=== PATIENT | female | born 2000 | race African-American/Black ===

== ENCOUNTER 2019-10-11 17:54 | Emergency (ER) | payer OTHER ==
--- NOTE | 2019-10-11 18:51 | ER Document Report ---
ED General - General Chief Complaint: Abdominal Cramping Stated Complaint: NAUSEA,VOMITING Time Seen by Provider: 10/11/19 18:20 Notes: 19-year-old female presents emergency department complaining that she started having nausea and vomiting associated with epigastric abdominal pain earlier this morning. Patient can tolerate liquids but not solids. Patient is concerned she may be because her last menstrual period which started on 09/19/2019 was only 5 days long instead of 7 days long. Denies any fevers or chills, denies any contact with coronavirus patients, denies any diarrhea or any other associated signs or symptoms. - Related Data Allergies/Adverse Reactions: No Known Allergies Allergy (Unverified 10/11/19 18:32) Past Medical History - General Information source: Patient - Social History Smoking Status: Never Smoker Family History: Reviewed & Not Pertinent Patient has homicidal ideation: No Review of Systems - Review of Systems Constitutional: No symptoms reported Gastrointestinal: See HPI, Abdominal pain, Nausea, Vomiting -: Yes All other systems reviewed and negative Physical Exam - Vital signs Vitals: Temp Pulse Resp BP Pulse Ox 98.2 F 76 16 136/66 H 100 10/11/19 18:25 10/11/19 18:25 10/11/19 18:25 10/11/19 18:25 10/11/19 18:25 Interpretation: Normal - Notes Notes: GENERAL: Alert, interacts well. No acute distress. HEAD: Normocephalic, atraumatic EYES: Pupils equal, round and reactive to light, extraocular movements intact. ENT: Oral mucosa moist, tongue midline. NECK: Full range of motion, supple, trachea midline. LUNGS: Clear to auscultation bilaterally, no wheezes, rales or rhonchi, no respiratory distress. HEART: Regular rate and rhythm, no murmurs, gallops, rubs. ABDOMEN: Soft, mild epigastric tenderness to palpation without any guarding, rigidity or rebounding, nondistended, bowel sounds present in all 4 quadrants. EXTREMITIES: Moves all 4 extremities spontaneously, no edema, radial and dorsalis pedis pulses 2/4 bilaterally. No cyanosis. NEUROLOGICAL: Alert and oriented x3, normal speech. PSYCH: Normal mood, normal affect. SKIN: Warm, Dry, normal turgor, no rashes or lesions noted. Course - Re-evaluation Re-evalutation: 10/11/19 20:27 CBC unremarkable, CMP unremarkable, urinalysis unremarkable, test negative. Lipase normal. Patient will be given GI cocktail, recommended to take daily acid suppressing medication, follow bland diet and advance as tolerated. Discharged home. Patient refused novel coronavirus testing. - Vital Signs Vital signs: Temp Pulse Resp BP Pulse Ox 98.2 F 76 16 136/66 H 100 10/11/19 18:26 10/11/19 18:25 10/11/19 18:25 10/11/19 18:25 10/11/19 18:25 - Laboratory Result Diagrams: 10/11/19 19:00 10/11/19 19:00 Laboratory results interpreted by me: 10/11/19 19:00 Sodium 136.5 L Discharge - Discharge Clinical Impression: Menstrual irregularity, Epigastric abdominal pain Nausea and vomiting Qualifiers: Vomiting type: unspecified Vomiting Intractability: non-intractable Qualified Code(s): R11.2 - Nausea with vomiting, unspecified Condition: Stable Disposition: HOME, SELF-CARE Additional Instructions: Today your blood work was normal. You do not have a urinary tract infection. You are not . There is no sign of infection in your abdomen. We gave you medication to help numb some of the pain in your upper abdomen. I think taking a daily acid suppressing medication such as Pepcid 20 mg twice a day may help with some of your pain. This medication is available [id number] both as a brand-name and as a generic. Please follow a bland diet, avoid spicy foods, greasy foods and alcohol. Start with clear liquids and then slowly introduce more liquids and foods in as you tolerate it. If something makes you vomit stop eating it wait 24 hours and then try again. Please return to the emergency department for any new or concerning symptoms to include persistent vomiting, fevers or blood in your vomit. Prescriptions: Famotidine [Pepcid 20 mg Tablet] 20 mg PO DAILY #30 tablet Forms: Return to Work
[2019-10-11 18:57] LABS: APPEARANCE,URINE SLIGHTLY-CLOUDY; BILIRUBIN,URINE NEGATIVE (NEGATIVE); COLOR,URINE YELLOW; GLUCOSE, URINE NEGATIVE (NEGATIVE); KETONES,URINE NEGATIVE (NEGATIVE); LEUKOCYTE ESTERASE,URINE NEGATIVE (NEGATIVE); NITRITE,URINE NEGATIVE (NEGATIVE); PROTEIN,URINE NEGATIVE (NEGATIVE); URINE SPECIFIC GRAVITY 1.013; UROBILINOGEN,URINE NEGATIVE mg/dL (<2.0)
[2019-10-11 19:20] LABS: ABSOLUTE EOSINOPHILS # (AUTO) 0.2 10^3/uL (0.0-0.6); ABSOLUTE MONOCYTES (AUTO) 0.6 10^3/uL (0.1-1.4); ABSOLUTE NEUT (AUTO) 3.2 10^3/uL (1.7-8.2); BASOPHILS % (AUTO) 0.7 % (0-2); HEMATOCRIT 37.6 % (36.0-47.0); HEMOGLOBIN 12.7 g/dL (12.0-15.5); LYMPHOCYTES % (AUTO) 33.4 % (13-45); MEAN CORPUSCULAR HEMOGLOBIN 30.2 pg (27.0-33.4); MEAN CORPUSCULAR HGB CONC 33.7 g/dL (32.0-36.0); MEAN CORPUSCULAR VOLUME 90 fl (80-97); MONOCYTES % (AUTO) 9.9 % (3-13); PLATELET COUNT 317 10^3/uL (150-450); RED CELL DISTRIBUTION WIDTH 12.5 % (11.5-14.0); TOTAL CELLS COUNTED % (AUTO) 100 %
[2019-10-11 19:41] LABS: ALBUMIN 3.9 g/dL (3.5-5.0); ALKALINE PHOSPHATASE 40 U/L (38-126); ANION GAP 7 (5-19); ASPARTATE AMINO TRANSFERASE 19 U/L (14-36); BILIRUBIN,TOTAL 0.2 mg/dL (0.2-1.3); BLOOD UREA NITROGEN 13 mg/dL (7-20); CALCIUM 9.3 mg/dL (8.4-10.2); CARBON DIOXIDE 26 mmol/L (22-30); CHLORIDE 104 mmol/L (98-107); GLUCOSE 76 mg/dL (75-110); TOTAL PROTEIN 7.3 g/dL (6.3-8.2)
[2019-10-11] MEDS ORDERED: ONDANSETRON 4 MG TAB.RAPDIS PO ONE (20:34)
[2019-10-11] MEDS ORDERED: ONDANSETRON ODT 4 MG TAB (6 TAB/ER DISP) PO PRN (20:35)
[2019-10-11 21:01] VITALS: BP 103/75
== END 2019-10-11 21:02 | disposition home or self-care (01) ==
LOC: ER 17:54
DX: R10.13 Epigastric pain (principal); R10.816 Epigastric abdominal tenderness; R11.2 Nausea with vomiting, unspecified; N92.6 Irregular menstruation, unspecified; Z32.02 Encounter for pregnancy test, result negative
CPT/HCPCS: 99284; 36415; 83690; 85025; 81025; 80053; 81001; S0119